=== PATIENT | male | born 1970 | race Caucasian/White ===

== ENCOUNTER → 2018-04-23 | Outpatient (CLI) | payer SELFPAY ==
[~2018-04-23] MED LIST: DIATRIZOATE MEGL/DIATRIZOA SOD 30 ML BTL PO ONE
--- NOTE | 2018-04-23 15:18 | Diagnostic Imaging Report ---
EXAM: CT Abdomen and Pelvis WITH contrast INDICATION: Abdominal pain COMPARISON: None. TECHNIQUE: Abdomen and pelvis were scanned utilizing a multidetector helical scanner from the lung base to the pubic symphysis after administration of IV contrast. Coronal and sagittal reformations were obtained. Routine protocol was performed. Scan was performed when during portal venous phase. Dose modulation, iterative reconstruction, and/or weight based adjustment of the mA/kV was utilized to reduce the radiation dose to as low as reasonably achievable. IV CONTRAST: 100 mL of Isovue-370 ORAL CONTRAST: 20 cc Gastrografin RADIATION DOSE: Total DLP: 442.36 mGy*cm Estimated effective dose: (DLP x 0.015 x size factor) mSv COMPLICATIONS: None FINDINGS: LINES and TUBES: None. LOWER THORAX: Lung bases clear. Heart size normal. HEPATOBILIARY: No focal hepatic lesions. No biliary ductal dilation. GALLBLADDER: No radio-opaque stones or sludge. No wall thickening. SPLEEN: No splenomegaly. A small focus of accessory splenic tissue is identified adjacent to the spleen. PANCREAS: No focal masses or ductal dilatation. ADRENALS: No adrenal nodules KIDNEYS/URETERS: Kidneys enhance symmetrically. No hydronephrosis. No cystic or solid mass lesions. No stones. GI TRACT: There is wall thickening from the mid descending colon to the proximal sigmoid (series 2, image 42 through image 61). There are adjacent mildly prominent lymph nodes.. There is moderate retained stool throughout the colon. Appendix is not visualized in keeping with provided history of appendectomy. PELVIC ORGANS/BLADDER: Urinary bladder appears unremarkable. Prostate is prominent with a diameter of 5.7 cm. No discrete abnormal mass or fluid collection in the pelvis. LYMPH NODES: There are mildly prominent nodes adjacent to the descending colon measuring up to 1.3 cm (image 60). There are also mildly prominent nodes measuring up to 8 mm in the central mesentery with mild surrounding mesenteric edema (leonel mesentery) (images 48-51). Mildly prominent nodes are also seen in the right lower quadrant mesentery measuring up to 0.9 cm (image 46). VESSELS: Abdominal aorta, IVC and portal system unremarkable. PERITONEUM / RETROPERITONEUM: No pneumoperitoneum or ascites. BONES: No acute or suspicious bony lesions. A nonaggressive appearing sclerotic focus is seen in the left iliac bone. SOFT TISSUES: Superficial surrounding soft tissue unremarkable. IMPRESSION: 1. There is diffuse wall thickening of the mid descending colon to the proximal sigmoid. Adjacent mildly prominent lymph nodes are seen. Findings suggest colitis which may be inflammatory or infectious. Finding less likely represents neoplasm. Colonoscopy may be helpful for further characterization. 2. There are mildly prominent lymph nodes in the central mesentery and right lower quadrant with mild mesenteric edema. These may be reactive findings. Staff: Awais Signed by: Dr. Reji Ernandez M.D. on 04/23/2018 3:14 PM
== END ==
LOC: CT 11:23
PROVIDERS: ATTEND Internal Medicine Gastroenterology
DX: R10.9 Unspecified abdominal pain (principal); R19.4 Change in bowel habit
CPT/HCPCS: 74177

== ENCOUNTER → 2018-05-08 | Day surgery (SDC) | payer SELFPAY ==
[~2018-05-08] MED LIST changes: +ATENOLOL50 MG PO; +AZELASTINE HCL6 ML; +CEFUROXIME250 MG PO; -DIATRIZOATE MEGL/DIATRIZOA SOD 30 ML BTL PO ONE; +FENTANYL CITRATE/PF 100MCG/2 ML INJ ONE; +FOLIC ACID1 MG PO; +HYDROCHLOROTHIA25 MG PO; +HYDROXYCHLOROQ200 MG PO; +HYOSCYAMINE SULFATE 0.5 MG/ML INJ ONE; +LISINOPRIL10 MG PO; +METHOTREXATE2.5 MG PO; +METOCLOPRAMIDE HCL 10 MG/2ML VIAL ONE; +MIDAZOLAM HCL 2 MG/2 ML VIAL ONE; +MOTELUKAST PO; +OMEPRAZOLE40 MG PO; +PROPOFOL IV EMULSION 10 MG/ML 50 ML VIAL ONE; +ULTRACET TABLE1 EACH PO; +VITAMIN D32000 UNIT PO
--- OUTSIDE RECORDS SUMMARY | 2018-05-08 06:44 | XMS REPORT ---
Author Author [facility] Address Unknown Phone Unavailable Care Team Providers Care Oven Drier Tender Name Role Phone AJAY AVILES Unavailable Unavailable Problems This patient has no known problems. Allergies, Adverse Reactions, Alerts This patient has no known allergies or adverse reactions. Medications This patient has no known medications. Results Test Description Test Time Test Comments Text Results Atomic Results Result Comments CT ABDOMEN/PELVIS W 2018-04-23 14:40:00 [place] [address] Patient Name: NICOLE FOSS MR #: [id number] : 1970 Age/Sex: 47/M Req #: [id number] Adm Physician: Ordered by: AJAY AVILES MD Report #: [id number] Location: CT Room/Bed: Procedure: [id number] CT/CT ABDOMEN/PELVIS W Exam Date: 04/23/18 Exam Time: 1245 REPORT STATUS: Signed EXAM: CT Abdomen and Pelvis WITH contrast INDICAT ION: Abdominal pain COMPARISON: None. TECHNIQUE: Abdomen and pelvis were scanned utilizing a multidetector helical scanner from the lung base to the pubic symphysis after administration of IV contrast. Coronal and sagittal reformations were obtained. Routine protocol was performed. Scan was performed when during portal venous phase. Dose modulation, iterative reconstruction, and/or weight based adjustment of the mA/kV was utilized to reduce the radiation dose to as low as reasonably achievable. IV CONTRAST: 100 mL of Isovue-370 ORAL CONTRAST: 20 cc Gastrografin RADIATION DOSE: Total DLP: 442.36 mGy*cm Estimated effective dose: (DLP x 0.015 x size factor) mSv COMPLICATIONS: None FINDINGS: LINES and TUBES: None. LOWER THORAX: Lung bases clear. Heart size normal. HEPATOBILIARY: No focal hepatic lesions. No biliary ductal dilation. GALLBLADDER: No radio-opaque stones or sludge. No wall thickening. SPLEEN: No splenomegaly. A small focus of accessory splenic tissue is identified adjacent to the spleen. PANCREAS: No focal masses or ductal dilatation. ADRENALS: No adrenal nodules KIDNEYS/URETERS: Kidneys enhance symmetrically. No hydronephrosis. No cystic or solid mass lesions. No stones. GI TRACT: There is wall thickening from the mid descending colon to the proximal sigmoid (series 2, image 42 through image 61). There are adjacent mildly prominent lymph nodes.. There is moderate retained stool throughout the colon. Appendix is not visualized in keeping with provided history of appendectomy. PELVIC ORGANS/BLADDER: Urinary bladder appears unremarkable. Prostate is prominent with a diameter of 5.7 cm. No discrete abnormal mass or fluid collection in the pelvis. LYMPH NODES: There are mildly prominent nodes adjacent to the descending colon measuring up to 1.3 cm (image 60). There are also mildly prominent nodes measuring up to 8 mm in the central mesentery with mild surrounding mesenteric edema (leonel mesentery) (images 48-51). Mildly prominent nodes are also seen in the right lower quadrant mesentery measuring up to 0.9 cm (image 46). VESSELS: Abdominal aorta, IVC and portal system unremarkable. PERITONEUM / RETROPERITONEUM: No pneumoperitoneum or ascites. BONES: No acute or suspic ious bony lesions. A nonaggressive appearing sclerotic focus is seen in the left iliac bone. SOFT TISSUES: Superficial surrounding soft tissue unremarkable. IMPRESSION: 1. There is diffuse wall thickening of the mid descending colon to the proximal sigmoid. Adjacent mildly prominent lymph nodes are seen. Findings suggest colitis which may be inflammatory or infectious. Finding less likely represents neoplasm. Colonoscopy may be helpful for further characterization. 2. There are mildly prominent lymph nodes in the central mesentery and right lower quadrant with mild mesenteric edema. These may be reactive findings. Staff: Awais Signed by: Dr. Sophia Almazan M.D. on 04/23/2018 3:14 PM Dictated By: SOPHIA ALMAZAN MD [id number] Transcribed By: IAN on 04/23/18 1515 COPY TO: AJAY AVILES MD
[2018-05-08 08:55] VITALS: BP 126/82
--- NOTE | 2018-05-08 12:45 | Operative Report ---
DATE OF PROCEDURE: 05/08/2018 SURGEON: Basil Castro MD PROCEDURE: EGD with biopsies and colonoscopy with polypectomy and biopsies. REFERRING PHYSICIAN: Dr. Marian Puga. INDICATIONS FOR EGD: Heartburn, indigestion. INDICATIONS FOR COLONOSCOPY: Crampy lower abdominal pain, constipation, abnormal CT scan of the abdomen. MEDICATION: The patient was done under MAC. Please see anesthesiologist's note. PROCEDURE IN DETAIL: With the patient in left lateral decubitus position, flexible fiberoptic Olympus gastroscope was introduced into the esophagus under direct visualization without any difficulty. There was a minute nodule in the cervical esophagus suspicious of a squamous papilloma removed per cold biopsy forceps. There was some patchy erythema noted in distal esophagus. A minute nodule was noted at the GE junction that was biopsied. The scope was then advanced with ease into the stomach. Mucosa overlying the antrum and the body revealed some patchy erythema and [id number] edema. Biopsies were obtained and sent to stain for H pylori. The pylorus was of normal contour, shape, was intubated with ease and the scope was advanced all the way to the second portion of the duodenum. Biopsies were obtained from the proximal second portion and duodenal bulb to rule out sprue. An approximately 5 mm nodule was noted in the distal bulb that was biopsied. The scope was then withdrawn back into the stomach and retroflexed and the mucosa overlying the fundus and the cardia appeared to be within normal limits. The scope was then straightened out. The stomach was decompressed. The scope was subsequently withdrawn. The patient tolerated procedure well. IMPRESSION: 1. Distal esophagitis. 2. Nodule at cervical esophagus removed per cold biopsy forceps. 3. Minute nodule at GE junction, biopsied. 4. Gastritis, biopsied. Biopsies sent to stain for Helicobacter pylori. 5. Approximately 5 mm nodule distal bulb, biopsied. 6. Rule out sprue. PLAN: Follow up histology. Initiate Protonix 40 mg one p.o. q.a.m. a.c. The patient was then turned around after adequate lubrication of the anal canal, flexible fiberoptic Olympus colonoscope was inserted into the rectum with ease and advanced to approximately 30 cm from the anal verge. An obstructing mass was noted and that was biopsied and site was tattooed. The rest of the sigmoid colon appeared to be within normal limits. One polyp was snared. One polyp was hot biopsied from the rectum. The scope was then retroflexed into the distal rectum and moderate size internal hemorrhoids were noted, none of which was actively bleeding. The scope was then straightened out and it was subsequently withdrawn. The patient tolerated the procedure well. IMPRESSION: 1. Obstructing mass at 30 cm from the anal verge, biopsied, tattooed. 2. Rectal polyps x2, one snared, one hot biopsied. 3. Internal hemorrhoids, none actively bleeding. PLAN: Follow up histology. We will obtain a general surgical consult with Dr. Pierre Fregoso. Basil Castro MD [facility] /[id number] cc: MD Pierre Yan MD
== END | disposition home or self-care (01) ==
LOC: OR 06:42
PROVIDERS: ATTEND Internal Medicine Gastroenterology
DX: K29.70 Gastritis, unspecified, without bleeding (principal); D12.5 Benign neoplasm of sigmoid colon; K62.1 Rectal polyp; K52.9 Noninfective gastroenteritis and colitis, unspecified; R19.09 Other intra-abdominal and pelvic swelling, mass and lump; K29.80 Duodenitis without bleeding; K59.00 Constipation, unspecified; K20.9 Esophagitis, unspecified; K21.9 Gastro-esophageal reflux disease without esophagitis; K22.8 Other specified diseases of esophagus; K31.89 Other diseases of stomach and duodenum; K64.8 Other hemorrhoids; Z01.810 Encounter for preprocedural cardiovascular examination
CPT/HCPCS: 43239; 45380; 45381; 45384; 45385; 93005; J1980; J2250; J2704; J2765; 45378

== ENCOUNTER → 2018-06-06 | Day surgery (SDC) | payer BC ==
[~2018-06-06] MED LIST changes: +BUPIVACAINE 0.25% 30ML SDV INJ ONE; +CEFAZOLIN SOD 1 GM/NS 50ML 50 ML IV ONE; +DEXAMETHASONE SOD PHOS INJ 4 MG/ML VIAL ONE; +HEPARIN SOD (PORCINE) 5,000 UNIT/ML VIAL ONE; -HYOSCYAMINE SULFATE 0.5 MG/ML INJ ONE; +LIDOCAINE HCL 2% LOCAL INJ 5 ML SDV VIAL INJ ONE; -METOCLOPRAMIDE HCL 10 MG/2ML VIAL ONE; +ONDANSETRON HCL INJ 2MG/ML 2ML 2 MG/ML VIAL ONE; +PROPOFOL IV EMULSION 10 MG/ML 20 ML VIAL ONE; -PROPOFOL IV EMULSION 10 MG/ML 50 ML VIAL ONE; +SEVOFLURANE INHAL SOLN 250 ML PEN BTL ONE; +SODIUM CHLORIDE 0.9% 500ML 500 ML ONE
[2018-06-06 12:05] VITALS: BP 119/74
--- NOTE | 2018-06-06 18:16 | Operative Report ---
DATE OF PROCEDURE: 06/06/2018 SURGEON: Pierre Fregoso MD PREOPERATIVE DIAGNOSIS: Colon cancer, needing IV access for chemotherapy. POSTOPERATIVE DIAGNOSIS: Colon cancer, needing IV access for chemotherapy. OPERATION PERFORMED: Placement of left subclavian venous access port under C-arm guidance. COMPUTER TESTER: KENDRICK Clancy. ANESTHESIA: General. COMPLICATIONS: None. ESTIMATED BLOOD LOSS: Minimal. DESCRIPTION OF PROCEDURE: With the patient lying in bed in the Trendelenburg position under good general anesthesia, the left chest and neck were prepped with Betadine solution and draped in the usual manner. A standard left subclavian venipuncture was performed without any difficulty and a guidewire was advanced into the central venous position. Using the C-arm, the tip of the guidewire was confirmed to be at the level of the superior vena cava and the left lung was fully expanded. The pocket was then created in the left anterior chest to accept the reservoir and the catheter was threaded to the subclavian position. The catheter was then cut to the appropriate length. The reservoir was anchored to the anterior chest wall with interrupted sutures of 2-0 silk. The reservoir and catheter were then fully heparinized. The peel-away sheath was then placed over the guidewire and the guidewire was removed, and the catheter was threaded through the peel-away sheath, and the peel-away sheath was then removed. There was good blood return, and the reservoir and catheter were fully heparinized. Using the C-arm, the tip of the catheter was confirmed to be at the level of the superior vena cava and the left lung was fully expanded. The wounds were then closed in layers. Subcutaneous tissue was approximated with 3-0 and 4-0 Vicryl. The skin was closed with subcuticular 5-0 Vicryl. Benzoin, Steri-Strips, and dressings were applied. The sponge, lap, and needle counts were correct. The patient tolerated the procedure well and returned to the recovery room in stable condition. Pierre Fregoso MD JLR/MODL /[id number]
== END | disposition home or self-care (01) ==
LOC: OR 06:49
PROVIDERS: ATTEND Surgery
DX: C18.9 Malignant neoplasm of colon, unspecified (principal); K21.9 Gastro-esophageal reflux disease without esophagitis; Z90.49 Acquired absence of other specified parts of digestive tract; Z45.2 Encounter for adjustment and management of vascular access device
CPT/HCPCS: 36561; 77001; C1751; J0690; J1100; J1644; J2001; J2250; J2405; J2704; J7040

== ENCOUNTER → 2018-11-12 | Day surgery (SDC) | payer BC ==
[~2018-11-12] MED LIST changes: -BUPIVACAINE 0.25% 30ML SDV INJ ONE; +BUPIVACAINE 0.25%/EPI 30ML SDV INJ ONE; -CEFAZOLIN SOD 1 GM/NS 50ML 50 ML IV ONE; -HEPARIN SOD (PORCINE) 5,000 UNIT/ML VIAL ONE; -SODIUM CHLORIDE 0.9% 500ML 500 ML ONE
[2018-11-12 11:55] VITALS: BP 110/66
--- NOTE | 2018-11-12 14:57 | Operative Report ---
DATE OF PROCEDURE: 11/12/2018 SURGEON: Pierre Fregoso MD PREOPERATIVE DIAGNOSIS: Completion of chemotherapy for colon cancer needing removal of venous access port. POSTOPERATIVE DIAGNOSIS: Completion of chemotherapy for colon cancer needing removal of venous access port. OPERATION PERFORMED: Removal of left subclavian venous access port. ANESTHESIA: General. COMPLICATIONS: None. ESTIMATED BLOOD LOSS: Minimal. DESCRIPTION OF PROCEDURE: With the patient lying in bed in the supine position under good general anesthesia, the left chest was prepped with Betadine solution and draped in the usual manner. The area overlying the old incision of the Port-A-Cath was infiltrated with 0.25% Marcaine solution. An incision was made, was carried down through the subcutaneous tissue and through the capsule of the Port-A-Cath. The 4 silk stitches were then removed and the Port-A-Cath was pulled out without any difficulty in its entirety. After this was done, the capsule was then closed with interrupted sutures of 3-0 Vicryl. The subcutaneous tissue was approximated with 4-0 Vicryl and the skin was closed with subcuticular 5-0 Vicryl. Benzoin, Steri-Strips, and dressings were applied. The sponge, lap, and needle count were correct. The patient tolerated the procedure well and returned to the recovery room in stable condition. MD JANIYA XieR/MODL /[id number]
== END | disposition home or self-care (01) ==
LOC: OR 07:10
PROVIDERS: ATTEND Surgery
DX: Z45.2 Encounter for adjustment and management of vascular access device (principal); C18.9 Malignant neoplasm of colon, unspecified; Z90.49 Acquired absence of other specified parts of digestive tract; Z92.21 Personal history of antineoplastic chemotherapy
CPT/HCPCS: 36590; 93005; J1100; J2001; J2250; J2405; J2704; J3010

== ENCOUNTER → 2020-06-23 | Day surgery (SDC) | payer BC ==
[~2020-06-23] MED LIST changes: -BUPIVACAINE 0.25%/EPI 30ML SDV INJ ONE; -DEXAMETHASONE SOD PHOS INJ 4 MG/ML VIAL ONE; -FENTANYL CITRATE/PF 100MCG/2 ML INJ ONE; +FLOMAX0.4 MG PO; +GLUCAGON FOR INJ 1 MG VIAL ONE; +MULTIVITAMIN1 EACH PO; -ONDANSETRON HCL INJ 2MG/ML 2ML 2 MG/ML VIAL ONE; -SEVOFLURANE INHAL SOLN 250 ML PEN BTL ONE
[2020-06-23 17:00] VITALS: BP 118/65
== END | disposition home or self-care (01) ==
LOC: OR 12:17
PROVIDERS: ATTEND Internal Medicine Gastroenterology
DX: Z12.11 Encounter for screening for malignant neoplasm of colon (principal); Z85.038 Personal history of other malignant neoplasm of large intestine; Z98.0 Intestinal bypass and anastomosis status; K64.8 Other hemorrhoids; K21.9 Gastro-esophageal reflux disease without esophagitis
CPT/HCPCS: 45380; 93005; J1610; J2001; J2250; J2704; 45378

== ENCOUNTER 2021-07-31 10:55 | Inpatient (IN) | payer BC ==
[~2021-07-31] VITALS: Ht 172.7 cm; Wt 92.1 kg
[~2021-07-31 10:55] MED LIST changes: -GLUCAGON FOR INJ 1 MG VIAL ONE; -LIDOCAINE HCL 2% LOCAL INJ 5 ML SDV VIAL INJ ONE; -MIDAZOLAM HCL 2 MG/2 ML VIAL ONE; -PROPOFOL IV EMULSION 10 MG/ML 20 ML VIAL ONE
[2021-07-31 11:16] LABS: BASOPHILS % 0.2 % (0.0-1.0); HEMATOCRIT 43.4 % (38.2-49.6); HEMOGLOBIN 14.1 g/dL (14.0-18.0); LYMPHOCYTES # (AUTO) 0.8 (1.0-3.2); LYMPHOCYTES % 5.7 % (18.0-39.1); MEAN CORPUSCULAR HEMOGLOBIN 28.4 pg (28-32); MEAN CORPUSCULAR HGB CONC 32.5 g/dL (31-35); MEAN CORPUSCULAR VOLUME 87.5 fL (81-99); MONOCYTES # (AUTO) 0.3 (0.2-0.8); MONOCYTES % 1.9 % (4.4-11.3); NEUTROPHILS # (AUTO) 12.2 (2.1-6.9); NEUTROPHILS % 91.7 % (38.7-80.0); PLATELET COUNT 233 x10e3/uL (140-360); RED BLOOD COUNT 4.96 x10e6/uL (4.3-5.7); RED CELL DISTRIBUTION WIDTH 12.6 % (11.7-14.4)
[2021-07-31] MEDS ORDERED: FENTANYL CITRATE/PF 100MCG/2 ML INJ IV PRN (11:30)
[2021-07-31] MEDS ORDERED: LACTATED RINGER'S 1,000 ML INJ ONE (11:30)
[2021-07-31 11:35] LABS: INR 0.91; PROTHROMBIN TIME 13.1 seconds (11.9-14.5)
[2021-07-31 11:36] LABS: PARTIAL THROMBOPLASTIN TIME 26.6 seconds (23.8-35.5)
[2021-07-31] MEDS ORDERED: ONDANSETRON HCL INJ 2MG/ML 2ML 2 MG/ML VIAL IV ONE (11:45)
[2021-07-31 11:47] LABS: ALBUMIN 4.2 g/dL (3.5-5.0); ALBUMIN/GLOBULIN RATIO 1.2 (0.8-2.0); CALCIUM 8.5 mg/dL (8.4-10.2); CREATININE, SERUM 0.91 mg/dL (0.72-1.25); LIPASE 11 U/L (8-78)
[2021-07-31] MEDS ORDERED: ONDANSETRON HCL INJ 2MG/ML 2ML 2 MG/ML VIAL ONE (11:58)
[2021-07-31] MEDS ORDERED: IOPAMIDOL 370 MG/ML 100 ML INFUS..BTL INJ ONE (13:29)
[2021-07-31] MEDS ORDERED: ONDANSETRON HCL INJ 2MG/ML 2ML 2 MG/ML VIAL IV PRN (13:30)
[2021-07-31] MEDS: SODIUM CHLORIDE 0.9% 1000ML 1,000 ML IV SCH ×2 (13:51→21:35)
[2021-07-31] MEDS ORDERED: Morphine 4mg Syringe 4 MG/ML INJ IV PRN (14:00)
[2021-07-31] MEDS: METRONIDAZOLE 750MG/NS 150ML 150 ML IV SCH ×2 (14:00→21:29)
[2021-07-31 14:45] VITALS: BP 143/82
[2021-07-31 15:36] VITALS: BP 143/82
[2021-07-31] MEDS ORDERED: PANTOPRAZOLE SO40 MG PO (16:10)
[2021-07-31 20:00] VITALS: BP 149/82
[2021-08-01] VITALS (8 sets, daily range): BP systolic 119–149; BP diastolic 65–82
[2021-08-01 05:07] LABS: BASOPHILS % 0.2 % (0.0-1.0); EOSINOPHILS # (AUTO) 0.1 (0.0-0.4); EOSINOPHILS % 0.5 % (0.0-6.0); HEMATOCRIT 43.4 % (38.2-49.6); HEMOGLOBIN 14.1 g/dL (14.0-18.0); LYMPHOCYTES # (AUTO) 1.7 (1.0-3.2); LYMPHOCYTES % 13.8 % (18.0-39.1); MEAN CORPUSCULAR HEMOGLOBIN 28.6 pg (28-32); MEAN CORPUSCULAR HGB CONC 32.5 g/dL (31-35); MONOCYTES # (AUTO) 0.9 (0.2-0.8); MONOCYTES % 7.6 % (4.4-11.3); NEUTROPHILS # (AUTO) 9.5 (2.1-6.9); NEUTROPHILS % 77.4 % (38.7-80.0); PLATELET COUNT 218 x10e3/uL (140-360); RED BLOOD COUNT 4.93 x10e6/uL (4.3-5.7); RED CELL DISTRIBUTION WIDTH 12.6 % (11.7-14.4)
[2021-08-01 05:24] LABS: ANION GAP 12.1 mmol/L (8-16); CALCIUM 8.7 mg/dL (8.4-10.2); CREATININE, SERUM 1.06 mg/dL (0.72-1.25); POTASSIUM 4.1 mmol/L (3.5-5.1)
[2021-08-01] MEDS: SODIUM CHLORIDE 0.9% 1000ML 1,000 ML IV SCH ×2 (06:15→12:36)
[2021-08-01] MEDS: METRONIDAZOLE 750MG/NS 150ML 150 ML IV SCH ×3 (06:32→21:35)
[2021-08-01] MEDS ORDERED: NEOSTIGMINE 1 MG/ML 10ML VIAL ONE (11:58)
[2021-08-01] MEDS ORDERED: KETOROLAC TROMETHAMINE 30 MG/ML VIAL ONE (11:58)
[2021-08-01] MEDS ORDERED: LIDOCAINE HCL 2% LOCAL INJ 5 ML SDV VIAL INJ ONE (11:58)
[2021-08-01] MEDS ORDERED: POVIDONE IODINE 0.05% 0.05 % ML PO ONE (11:58)
[2021-08-01] MEDS ORDERED: PROPOFOL IV EMULSION 10 MG/ML 20 ML VIAL ONE (11:58)
[2021-08-01] MEDS ORDERED: DEXAMETHASONE SOD PHOS INJ 4 MG/ML SDV ONE (11:58)
[2021-08-01] MEDS ORDERED: ONDANSETRON HCL INJ 2MG/ML 2ML 2 MG/ML VIAL ONE (11:58)
[2021-08-01] MEDS ORDERED: SEVOFLURANE INHAL SOLN 250 ML PEN BTL ONE (11:58)
[2021-08-01] MEDS ORDERED: GLYCOPYRROLATE INJ 0.2 MG/ML VIAL ONE (11:58)
[2021-08-01] MEDS ORDERED: MIDAZOLAM HCL 2 MG/2 ML VIAL ONE (12:29)
[2021-08-01] MEDS ORDERED: FENTANYL CITRATE/PF 100MCG/2 ML INJ ONE (12:29)
[2021-08-01] MEDS ORDERED: LIDOCAINE 1% W/EPINEPHRINE 20 ML VIAL ONE (13:26)
[2021-08-01] MEDS ORDERED: KETOROLAC TROMETHAMINE 30 MG/ML VIAL IV PRN (15:15)
[2021-08-02] VITALS (8 sets, daily range): BP systolic 118–134; BP diastolic 59–84
[2021-08-02] MEDS: SODIUM CHLORIDE 0.9% 1000ML 1,000 ML IV SCH ×4 (01:09→20:20)
[2021-08-02 05:17] LABS: BASOPHILS % 0.1 % (0.0-1.0); EOSINOPHILS % 0.1 % (0.0-6.0); HEMATOCRIT 37.2 % (38.2-49.6); HEMOGLOBIN 11.9 g/dL (14.0-18.0); LYMPHOCYTES # (AUTO) 1.1 (1.0-3.2); LYMPHOCYTES % 9.8 % (18.0-39.1); MEAN CORPUSCULAR HEMOGLOBIN 28.4 pg (28-32); MEAN CORPUSCULAR VOLUME 88.8 fL (81-99); MONOCYTES # (AUTO) 0.8 (0.2-0.8); MONOCYTES % 6.9 % (4.4-11.3); NEUTROPHILS % 82.7 % (38.7-80.0); PLATELET COUNT 175 x10e3/uL (140-360); RED BLOOD COUNT 4.19 x10e6/uL (4.3-5.7); RED CELL DISTRIBUTION WIDTH 12.6 % (11.7-14.4)
[2021-08-02 05:39] LABS: ALBUMIN 3.2 g/dL (3.5-5.0); ALBUMIN/GLOBULIN RATIO 1.1 (0.8-2.0); ANION GAP 10.8 mmol/L (8-16); CALCIUM 7.8 mg/dL (8.4-10.2); CREATININE, SERUM 0.94 mg/dL (0.72-1.25); POTASSIUM 3.8 mmol/L (3.5-5.1)
[2021-08-02] MEDS: METRONIDAZOLE 750MG/NS 150ML 150 ML IV SCH ×3 (06:14→21:32)
[2021-08-02] MEDS: HYDROCODONE/APAP 7.5MG-325MG 1 EA TAB PO PRN ×2 (10:39→21:10)
[2021-08-02 13:09] LABS: % IRON SATURATION 10 % (15-50); IRON 26 ug/dL (65-175); TOTAL IRON BINDING CAPACITY 265 ug/dL (261-478); TRANSFERRIN 189 mg/dL (174-364)
[2021-08-03] MEDS ORDERED: CYANOCOBALAMIN INJ 1,000 MCG/ML VIAL IM ONE (00:30)
[2021-08-03 00:39] VITALS: BP 132/79
[2021-08-03 04:49] VITALS: BP 139/76
[2021-08-03] MEDS: SODIUM CHLORIDE 0.9% 1000ML 1,000 ML IV SCH ×2 (05:06→10:48)
[2021-08-03] MEDS: METRONIDAZOLE 750MG/NS 150ML 150 ML IV SCH (05:34)
[2021-08-03 07:41] VITALS: BP 141/83
[2021-08-03 08:10] VITALS: BP 141/83
[2021-08-03 08:11] VITALS: BP 141/83
[2021-08-03] MEDS ORDERED: IRON SUCROSE 200 MG in SODIUM CHLORIDE 0.9% 100 ML 100 ML IV SCH (09:00)
[2021-08-03] MEDS ORDERED: CYANOCOBALAMIN INJ 1,000 MCG/ML VIAL IM SCH (09:00)
[2021-08-03] MEDS ORDERED: ONDANSETRON HCL 4 MG ORAL DISINTEGRATING TAB PO PRN (09:45)
[2021-08-03 11:51] VITALS: BP 136/85
[2021-08-03] MEDS ORDERED: METRONIDAZOLE 500 MG TAB PO SCH (14:00)
[2021-08-03] MEDS ORDERED: LEVOFLOXACIN250 MG PO (14:09)
[2021-08-03] MEDS ORDERED: PANTOPRAZOLE SOD 40 MG TABEC PO SCH (21:00)
== END 2021-08-03 14:40 | disposition home or self-care (01) | DRG 419 ==
LOC: ER 11:15 → OBSVTOIN 13:27 → INTOOBSV 13:27 → ERHOLD 13:27 → MED/SURG 14:31
PROC: 0FT44ZZ Resection of Gallbladder, Percutaneous Endoscopic Approach (ICD-10-PCS; principal; 2021-08-01 13:23)
DX: K80.12 Calculus of gallbladder with acute and chronic cholecystitis without obstruction (principal); F41.9 Anxiety disorder, unspecified; K82.8 Other specified diseases of gallbladder; K21.9 Gastro-esophageal reflux disease without esophagitis; N40.0 Benign prostatic hyperplasia without lower urinary tract symptoms; E53.8 Deficiency of other specified B group vitamins; Z85.038 Personal history of other malignant neoplasm of large intestine; Z20.822 Contact with and (suspected) exposure to COVID-19
CPT/HCPCS: 36415; 74177; 76705; 80048; 80053; 82607; 82746; 83540; 83605; 83690; 84466; 84484; 85025; 85045; 85610; 85730; 87040; 88304; 93005; 94799; 99284; C1713; C1766; J0696; J1100; J1756; J1885; J2001; J2250; J2270; J2405; J2710; J3010; J3420; J7030; J7121; Q9967; U0002

== ENCOUNTER → 2024-06-11 | Day surgery (SDC) | payer MEDICARE ==
[~2024-06-11] MED LIST changes: +FENTANYL CITRATE/PF 100MCG/2 ML INJ ONE; +GLUCAGON FOR INJ 1 MG VIAL ONE; +HYOSCYAMINE SULFATE 0.5 MG/ML INJ ONE; +LEVOFLOXACIN250 MG PO; +LIDOCAINE HCL 2% LOCAL INJ 5 ML SDV VIAL INJ ONE; +PANTOPRAZOLE SO40 MG PO; +PROPOFOL IV EMULSION 10 MG/ML 20 ML VIAL ONE; +PROPOFOL IV EMULSION 50 ML IV ONE
[2024-06-11] MEDS: LACTATED RINGER'S 1,000 ML ONE (07:43)
[2024-06-11 10:30] VITALS: TEMP 97.8
[2024-06-11 10:45] VITALS: BP 129/90; PULSE 64; RESP 16; O2SAT 99
== END | disposition home or self-care (01) ==
LOC: OR 06:54
PROVIDERS: ATTEND Internal Medicine Gastroenterology
DX: Z12.11 Encounter for screening for malignant neoplasm of colon (principal); D12.3 Benign neoplasm of transverse colon; D12.8 Benign neoplasm of rectum; Z85.038 Personal history of other malignant neoplasm of large intestine; K29.70 Gastritis, unspecified, without bleeding; K20.90 Esophagitis, unspecified without bleeding; K31.89 Other diseases of stomach and duodenum; K21.9 Gastro-esophageal reflux disease without esophagitis; Z98.0 Intestinal bypass and anastomosis status; K64.8 Other hemorrhoids; Z01.810 Encounter for preprocedural cardiovascular examination
CPT/HCPCS: 43239; 45385; 93005; J1610; J1980; J2003; J2470; J2704 ×2; J3010; J7121; 45378